=== PATIENT | male | born 1985 | race African-American/Black ===

== ENCOUNTER → 2020-02-27 | Outpatient (CLI) | payer BC ==
[~2020-02-27] MED LIST: VITAMIN B-121000 MC2 SUBLING
== END ==
LOC: LAB 02-26 10:19
PROVIDERS: ATTEND Orthopaedic Surgery Sports Medicine
DX: Z01.812 Encounter for preprocedural laboratory examination (principal); Z20.828 Contact with and (suspected) exposure to other viral communicable diseases

== ENCOUNTER 2020-03-02 06:10 | Day surgery (SDC) | payer BC ==
[~2020-03-02] VITALS: Ht 167.6 cm; Wt 82.1 kg
[2020-03-02 06:37] VITALS: BP 126/85
[2020-03-02 10:42] VITALS: BP 126/85
--- NOTE | 2020-03-03 19:14 | O ---
[address] [address] OPERATIVE REPORT Name: LISA STEVENSON Room #: [facility].#: [id number] Admission: 03/02/20 Attend Phys: Larry Romero MD Discharge: 03/02/20 Date of : 81 Report #: [id number] THIS REPORT FOR: cc: ARIELA HARRIS Physician not on staff Larry Romero MD ~ CC: ARIELA Romero Physician staff DATE OF SERVICE: 03/02/2020 SURGEON: Larry Romero MD [employer] TECHNICAL MANAGER: Carmen Vargas NP INDICATION FOR [employer] TECHNICAL MANAGER: Extremity positioning, suture management, arthroscope management, assistance with repair. FACILITY: [place]. PREOPERATIVE DIAGNOSES: 1. Right hip pain. 2. Right hip femoroacetabular impingement. 3. Right hip possible labral tear. POSTOPERATIVE DIAGNOSES: 1. Right hip pain. 2. Right hip femoroacetabular impingement. 3. Right hip labral tear. PROCEDURES: 1. Right hip arthroscopic labral repair. 2. Right hip arthroscopic Cam osteochondroplasty. 3. Right hip arthroscopic extraarticular subspine acetabuloplasty. Additional work required for the subspine decompression to address the extraarticular acetabular sided impingement pathology. COMPLICATIONS: None. DRAINS: None. SPECIMENS: None. ANESTHESIA: General with regional. [address] [address] OPERATIVE REPORT Name: LISA STEVENSON Room #: DEP [facility]#: [id number] Admission: 03/02/20 Attend Phys: Larry Romero MD Discharge: 03/02/20 Date of : 81 Report #: [id number] FINDINGS: 1. Nitza CinchLock suture anchor x 2 for labral repair of labral tear with a small associated chondral wave sign. 2. Prominent anterior inferior iliac spine causing subspine impingement, which required subspine decompression. 3. 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 Maximum alpha angle approximately 65 degrees. 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 He had imaging consistent with femoroacetabular impingement. The Tonnis grade is 0. The alpha angle is 65 degrees. There was a prominent anterior inferior iliac spine and so he had a combined type intra and extraarticular impingement. He had an MRI, which showed partial labral fraying on the articular side by my interpretation, which was confirmed intraoperatively to in fact be symptomatic and significant labral tear. Risks, benefits, alternatives, and indications of surgery discussed with him in detail. Risks include, but not limited to pain, bleeding, infection, injury to nerves or blood vessels, persistent pain despite surgical intervention, failure of any repairs, progression of preexisting chondral injury, stiffness, need for further surgery as well as complications related to anesthesia. Despite the risks, he wished to proceed. PROCEDURE IN DETAIL: After right lower extremity was correctly identified in the preoperative holding area as the operative extremity, the patient underwent placement of single shot regional nerve block. He was then taken to the operating room where general anesthesia was induced without complications. He was padded appropriately. Prophylactic antibiotics were administered at appropriate time. Right hip femoral head and neck junction was mapped out under fluoroscopy to identify the extent of the Cam deformity and he was confirmed, the fact to have Cam impingement. Right hip was then prepped and draped in standard sterile fashion. Timeout procedure performed. Traction was applied to right lower extremity. Standard anterolateral viewing portal was established under fluoroscopic guidance and then anteromedial working portal was established under fluoroscopic and arthroscopic visualization as well. There was some synovitis and erythema within the hip. These will be the indications for continuous passive motion machine usage postoperatively in order to decrease scarring and adhesions as these can be reasons for postoperative pain and reoperation in this patient population. Transverse capsulotomy was performed. The shaver was used to perform a limited synovectomy. We turned attention towards the labrum itself. There was obvious fraying at the chondral labral junction anteriorly consistent with a partial thickness articular-sided acetabular labral tear that likely extended to full thickness. There was a [facility] [address] [place] [address] OPERATIVE REPORT Name: LISA STEVENSON Room #: DEP [facility] Alvino#: [id number] Admission: 03/02/20 Attend Phys: Larry Romero MD Discharge: 03/02/20 Date of : 81 Report #: [id number] chondral wave sign more lateral to the lesion itself. The capsule was reflected off the dorsal side of the labrum. There was a dense wall of the bone directly above the labrum anteriorly, which corresponded with the labral pathology and was the source of the extraarticular subspine impingement. Some additional exposure was then used while efforts were made and torqued to preserve as much capsular tissue as able and needed and then after the subspine region was visualized, the bur was used to perform a subspine decompression recessing it back proximal to the acetabular rim. No acetabular rim resection was required because he did not have it over coverage situation. The bur was then used to abrade the acetabular rim in order to create a fresh bleeding surface for labral refixation and then the labral repair was completed with a total of 2 Mcloud CinchLock suture anchors providing good compression of the labrum against the acetabular rim. Probe was used to confirm stability of the labrum at this point. Traction was let down. Hip was flexed up. Viewing portal was made anteromedially and then the transverse capsulotomy was extended down the neck in a T shape to allow visualization of the entire Cam deformity. A C-arm was used for localization and then the bur was used to perform a Cam osteoplasty. I removed the instruments, brought C-arm back in and assessed the resection, identified some additional bone anterolaterally that needed to be resected and then placed the instruments back in the hip, completed the Cam osteoplasty and then removed the instruments, brought C-arm in a final time and confirmed that adequate resection had been completed. The instruments were then placed back into the hip. The bony debris was lavaged out of the hip and then the T-shaped capsulotomy was closed with a total of 6, #2 Vicryl sutures. Instruments were removed. Portal sites were closed. Sterile dressing was applied. The patient was awakened from anesthesia and taken to recovery room in stable condition. No complications. All counts were correct. <ELECTRONICALLY SIGNED> By: Larry Romero MD 03/03/20 [id number] Larry Romero MD /nt
== END 2020-03-02 11:25 | disposition home or self-care (01) ==
LOC: OR 06:10 → TBA 06:12 → OR 08:54
PROVIDERS: ATTEND Orthopaedic Surgery Sports Medicine
DX: M25.551 Pain in right hip (principal); M25.851 Other specified joint disorders, right hip; S73.101A Unspecified sprain of right hip, initial encounter; Z98.890 Other specified postprocedural states; X58.XXXA Exposure to other specified factors, initial encounter; Y93.89 Activity, other specified; Y92.89 Other specified places as the place of occurrence of the external cause; Y99.8 Other external cause status
CPT/HCPCS: 50010; 50101; 50386; 51320; 51538; 52304; 52313; 56524; 56527; 57092; 57103; 58274; 62110; 62900; 64039; 70005